=== PATIENT | male | born 1945 | race Two or more races ===

== ENCOUNTER 2018-04-13 12:28 | Outpatient (CLI) | payer OTHER ==
[~2018-04-13 12:28] MED LIST: CLOPIDOGREL BIS75 MG; COZAAR100 MG; DILTIAZEM 24HR120 MG; GYNE-LOTRIMIN45 GM; KETO10TA2 PO; ORPH100T PO; TAMS0.4C
== END 2018-04-13 15:44 | disposition home or self-care (01) ==
LOC: SONOGRAMA 12:28
DX: K76.0 Fatty (change of) liver, not elsewhere classified (principal)

== ENCOUNTER 2018-05-29 11:59 | Emergency (ER) | payer OTHER ==
[~2018-05-29] VITALS: Ht 162.6 cm; Wt 68.0 kg
[2018-05-29] MEDS ORDERED: DILTIAZEM 24HR300 MG (12:16)
[2018-05-29] MEDS ORDERED: ZANTAC150 MG PO (15:13)
[2018-05-29] MEDS ORDERED: DICY20TA PO (15:13)
== END 2018-05-29 15:21 | disposition home or self-care (01) ==
LOC: ER 11:59
DX: K29.70 Gastritis, unspecified, without bleeding (principal); R14.0 Abdominal distension (gaseous)